=== PATIENT | female | born 1945 | race Caucasian/White ===

== ENCOUNTER → 2024-05-10 10:07 | Outpatient (REF) | payer MEDICARE, BC, SELFPAY | LOC: RAD 10:07 | PROVIDERS: ATTENDING PHYSICIAN Internal Medicine Endocrinology, Diabetes & Metabolism; FAMILY PHYSICIAN Student in an Organized Health Care Education/Training Program | DX: C73 Malignant neoplasm of thyroid gland (principal) | CPT/HCPCS: 76536 ==

== ENCOUNTER → 2024-06-10 08:57 | Outpatient (REF) | payer MEDICARE, BC, SELFPAY | LOC: RAD 08:57 | PROVIDERS: ATTENDING PHYSICIAN Student in an Organized Health Care Education/Training Program | DX: R14.0 Abdominal distension (gaseous) (principal) | CPT/HCPCS: 76830; 76856 ==

== ENCOUNTER → 2024-06-22 13:47 | Outpatient (REF) | payer MEDICARE, BC, SELFPAY | LOC: RAD 13:47 | PROVIDERS: ATTENDING PHYSICIAN Student in an Organized Health Care Education/Training Program | DX: N95.1 Menopausal and female climacteric states (principal); Z12.31 Encounter for screening mammogram for malignant neoplasm of breast; R09.89 Other specified symptoms and signs involving the circulatory and respiratory systems; Z78.0 Asymptomatic menopausal state | CPT/HCPCS: 77063; 77067; 77080 ==

== ENCOUNTER → 2025-07-04 09:28 | Outpatient (REF) | payer MEDICARE, BC, SELFPAY | LOC: RAD 09:28 | PROVIDERS: ATTENDING PHYSICIAN Internal Medicine Endocrinology, Diabetes & Metabolism; FAMILY PHYSICIAN Student in an Organized Health Care Education/Training Program | DX: E03.2 Hypothyroidism due to medicaments and other exogenous substances (principal); C73 Malignant neoplasm of thyroid gland | CPT/HCPCS: 76536 ==

== ENCOUNTER 2025-07-26 18:25 | Inpatient (IN) | payer MEDICARE, BC, SELFPAY ==
[2025-07-26] VITALS (8 sets, daily range): BP systolic 96–158; BP diastolic 48–67; PULSE 47–53; BMI 29.7
[2025-07-26 12:03] LABS: Hematocrit 44.9 % (37.0-47.0); Hemoglobin 15.0 g/dL (12.0-16.0); Mean Corp Hgb Conc. 33.4 g/dL (33.0-37.0); Mean Corpuscular Volume 90.5 fL (81.0-99.0); Nucleated Red Blood Cells % 0 %; Platelet Count 240 10^3/uL (130-400); Red Cell Dist. Width 12.8 % (11.5-14.5)
[2025-07-26 12:13] LABS: INR 1.32; PT 16.7 Sec (11.4-14.6)
[2025-07-26 12:26] LABS: ALT (SGPT) 18 U/L (0-35); AST (SGOT) 20 U/L (14-36); Albumin 4.7 g/dl (3.5-5.0); Alkaline Phosphatase 96 U/L (38-126); Blood Urea Nitrogen 17 mg/dl (7-17); Calcium 10.0 mg/dl (8.4-10.2); Carbon Dioxide 28 mmol/L (22-30); Chloride 104 mmol/L (98-107); Estimated Creatinine Clearance 73 ml/min; Glucose 109 mg/dl (70-99); Potassium 3.1 mmol/L (3.5-5.1); Sodium 142 mmol/L (135-145); Total Protein 8.2 g/dl (6.3-8.2); eGFR > 60.00
--- NOTE | 2025-07-26 12:47 | ED.GENMED ---
History of Present Illness
General
Chief Complaint: Rectal Bleeding
Source: patient
Exam Limitations: none
Time Seen by Provider: 07/26/25 12:36
History of Present Illness
History of Present Illness:
Patient here primarily complaining of rectal bleeding. She states she has been constipated for a while. She is on Wegovy. She has been taking MiraLAX. Yesterday had a large bowel movement. This was followed by some episodes of bright red blood
with that diarrhea. Some vague lower abdominal cramping and pain. No fever or chills. Patient is on Eliquis for atrial fibrillation. No other specific complaints
Past History
Past History
ED Past Medical History: Arrthythmia, GERD, HTN and Hypercholesterolemia
ED Past Surgical History: Cholecystectomy and Other (Thyroidectomy)
Review of Systems
Review of Systems
All Other Systems: Not applicable
Constitutional: Denies fever
Respiratory: Reports no symptoms
Cardiac: Reports no symptoms
Phy Exam
Physical Exam
Physical Exam:
GENERAL: Alert and oriented in no apparent distress. On her phone on arrival to the ER
EYE: Orbits normal.
NECK: Supple
CARDIAC: Regular rate and rhythm without any obvious murmurs.
LUNGS: Clear breath sounds,normal
ABDOMEN: Soft, minimal nonlocalizing diffuse lower abdominal tenderness. No rebound or guarding no mass or hernia. Rectal exam with moderate noninflamed external hemorrhoids. No external blood. On rectal digital exam there is no stool or fluid
or blood in the rectal vault. Essentially test negative. However very minimal fluid to test
NEUROLOGICAL: Alert and oriented , grossly non-focal
SKIN: Warm and dry, no rash or lesion, no discoloration, skin intact.
MUSCULOSKELETAL: No edema,no deformity.Good color
PSYCH: Normal and appropriate interaction.
Course
Orders/Labs/Results
Orders:
Orders
07/26/25 11:57
Type+Screen Urgent
Complete Blood Count/With Diff Urgent
Comprehensive Metabolic Panel Urgent
Prothrombin Time Urgent
07/26/25 12:45
CT Abd/Pel (IV only)-DH only Urgent
Comment:
Reason For Exam: Lower abdominal pain/rectal bleeding
IV Insert/Care/Rem.- Treatment PRN
0.9% Sodium Chloride 500 ml [Nss] 500 ml IV BOLUS
07/26/25 15:45
Potassium Chloride 10% Elixir [KCl Elixir] 40 meq PO NOW STA
07/26/25 16:35
Lactic Acid Urgent
Piperacillin/Tazo 3.375 Gram [Zosyn] 3.375 gram in 50 ml IV NOW
Abnormal Lab Results
07/26/25
11:57
MPV 10.9 H fL
(7.4-10.4)
Absolute Neuts (auto) 7.8 H 10^3/uL
(1.4-6.5)
Absolute Monos (auto) 0.8 H 10^3/uL
(0.1-0.6)
PT 16.7 H Sec
(11.4-14.6)
Potassium 3.1 L mmol/L
(3.5-5.1)
Glucose 109 H mg/dl
(70-99)
07/26/25 11:57
07/26/25 11:57
Vital Signs
Initial and Last Documented VS:
Initial Vital Signs
Temp Pulse Resp BP Pulse Ox
98.8 F 51 18 158/67 99
07/26/25 11:48 07/26/25 11:48 07/26/25 11:48 07/26/25 11:48 07/26/25 11:48
Last Documented Vital Signs
Temp Pulse Resp BP Pulse Ox
98.8 F 61 16 136/62 95
07/26/25 11:48 07/26/25 14:18 07/26/25 14:18 07/26/25 14:00 07/26/25 14:00
MDM/Problems Addressed
Differential Diagnosis Includes:
Patient describing episodes of bright red rectal bleeding. Clinically stable. Large differential including bleeding hemorrhoid fissure internal hemorrhoid polyp diverticulitis. Doubt significant bleeding at this time given her stability stable
hemoglobin and no stool that test positive currently. Will check CT for diverticulitis.
*Pulse Oximetry
SaO2: 99
Oxygen Mode of Delivery: Room air
Patient hypoxic: no
*Critical Care Note
Total Time (30-74mins, 75-104mins- exclusive of procedures): Not Applicable
ED Attending Note
-
Portions of this chart may have been created with voice recognition software.� Occasional wrong word or��sound alike� substitutions may have occurred due to the inherent limitations of voice recognition software.
Discharge Plan
Departure
Patient Disposition: Admit
Date of Disposition: 07/26/25
Time of Disposition: 16:36
Presentation/result/management discussed w/ accepting MD/DO: Hospitalist
Discharge Problem:
Colitis/rectal bleeding
Prescriptions:
No Action
atorvastatin 20 mg Tablet
20 mg PO QPM
spironolacton-hydrochlorothiaz 25-25 mg Tablet
1 tab PO SUTUTHSA@1700
amlodipine 2.5 mg Tablet
2.5 mg PO QPM
omeprazole 20 mg Capsule,Delayed Release(Dr/Ec)
20 mg PO QPM
cholecalciferol (vitamin D3) [Vitamin D3] 125 mcg (5,000 unit) Tablet
125 mcg PO QPM
Eliquis 5 mg Tablet
5 mg PO BID
biotin 10,000 mcg Tablet,Disintegrating
10,000 mcg PO DAILY
enalapril maleate 2.5 mg Tablet
2.5 mg PO QPM
cyclosporine 0.05 % Drops
1 drp BOTH EYES Q12H
levothyroxine [Synthroid] 137 mcg Tablet
137 mcg PO MOTUWETHFRSA
ibuprofen [Advil] 200 mg Tablet
400 mg PO TIDPRN PRN (Reason: mild pain)
Align (B.longum) 10 million cell Capsule
1 cell PO DAILY
Referrals:
Ivett Lua MD [Family Provider, Internal Medicine]
Interventions
Interventions:
*Risk Screen - Suicide Last Done: 07/26/25 11:50
*General Assessment Last Done: 07/26/25 11:50
*Neglect/Abuse Screening Last Done: 07/26/25 11:50
*ED- Fall Risk Assessment Last Done: 07/26/25 12:19
*ED COVID-19 Vaccine History Last Done: 07/26/25 11:50
*ED Influenza Vaccine History Last Done: 07/26/25 11:50
QB-Jjlodg-Ogwggqjbea Assessment Last Done: 07/26/25 12:19
ED- Cardiac Assessment Last Done: 07/26/25 12:19
ED- Pulmonary Assessment Last Done: 07/26/25 12:19
Discharge Date and Time
Print Language: LAO
[2025-07-26] MEDS: NSS 500 IV (12:57)
[2025-07-26] MEDS: ZOSYN 50 IV (16:45)
[2025-07-26] MEDS: KCL ELIXIR 40 MEQ PO (16:45)
--- NOTE | 2025-07-26 17:18 | HPS.HSE ---
Family Physician
-
Family Physician: Ivett Lua MD
Chief Complaint
-
rectal bleed
History of Present Illness
79F on Eliquis, Prx AF, HTN , DLP, Hypothyroid see at ER
- rectal bleeding
- she has been constipated for a while
- on Wegovy.
- has been taking MiraLAX.
- Yesterday had a large bowel movement. This was followed by some episodes of bright red blood with that diarrhea.
- Some vague lower abdominal cramping and pain.
No fever or chills.
Medical History
Past Medical History
Past Medical History: Reports Arrhythmia (Prx AF o Eliquis ), GERD, HTN and Hypercholesterolemia
Past Surgical History: Reports Cholecystectomy and Other (Thyroidectomy))
Social History
Tobacco: Non-smoker
Alcohol: None
Family History
Family History: Not pertinent
Allergies / Home Medications
Allergies reflects when Allergies were last updated in [facility].
Home Medications with original date entered in [facility]
Allergy/Medication List:
Allergies
Allergy/AdvReac Type Severity Reaction Status Date / Time
No Known Drug Allergies Allergy NA Verified 07/26/25 11:48
pollen extracts Allergy itchy eyes Verified 07/26/25 11:48
& nose
Home Medications
amlodipine 2.5 mg tablet 2.5 mg PO QPM 04/02/23
apixaban 5 mg tablet (Eliquis) 5 mg PO BID 04/02/23
atorvastatin 20 mg tablet 20 mg PO QPM 04/02/23
biotin 10,000 mcg disintegrating tablet 10,000 mcg PO DAILY 04/02/23
cholecalciferol (vitamin D3) 125 mcg (5,000 unit) tablet (Vitamin D3) 125 mcg PO QPM 04/02/23
enalapril maleate 2.5 mg tablet 2.5 mg PO QPM 04/02/23
omeprazole 20 mg capsule,delayed release 20 mg PO QPM 04/02/23
spironolactone 25 mg-hydrochlorothiazide 25 mg tablet 1 tab PO SUTUTHSA@1700 04/02/23
cyclosporine 0.05 % eye drops 1 drp BOTH EYES Q12H 04/08/23
Bifidobacterium longum 10 million cell capsule (Align (B.longum)) 1 cell PO DAILY 07/26/25
ibuprofen 200 mg tablet (Advil) 400 mg PO TIDPRN PRN mild pain 07/26/25
levothyroxine 137 mcg tablet (Synthroid) 137 mcg PO MOTUWETHFRSA 07/26/25
Review of Systems
-
Constitutional: Reports No Symptoms
EENT: Reports No Symptoms
Respiratory: Reports No Symptoms
Cardiac: Reports No Symptoms
Abdomen/GI: Reports See HPI and Other (rectal bleed )
: Reports No Symptoms
Musculoskeletal: Reports No Symptoms
Skin: Reports No Symptoms
Neurological: Reports No Symptoms
Endocrine: Reports No Symptoms
Hematologic/Lymphatic: Reports No Symptoms
Psych: Reports No Symptoms
Physical Exam
Vital Signs
Vital Signs
Temp Pulse Resp BP Pulse Ox
98.8 F 61 16 136/62 95
07/26/25 11:48 07/26/25 14:18 07/26/25 14:18 07/26/25 14:00 07/26/25 14:00
Physical Exam
General: Well Developed, Well Nourished and No Apparent Distress
HEENT: NormoCephalic, Moist mucous membranes and Atraumatic
Respiratory: Clear
Cardiac: S1/S2 and Regular Rhythm; No Murmur or Rub
GI: Soft, Non Tender, Non Distended and Normal Bowel Sounds; No Organomegaly
Rectal: Red and Deferred by Provider
Musculoskeletal: No Clubbing, No Cyanosis and No Edema
Skin: No Rash
Neuro: Nonfocal/grossly intact
Laboratory Results
-
07/26/25 11:57
07/26/25 11:57
Laboratory Results
PT 16.7 Sec (11.4-14.6) H 07/26/25 11:57
INR 1.32 07/26/25 11:57
Total Bilirubin 0.9 mg/dl (0.2-1.3) 07/26/25 11:57
AST 20 U/L (14-36) 07/26/25 11:57
ALT 18 U/L (0-35) 07/26/25 11:57
Alkaline Phosphatase 96 U/L (38-126) 07/26/25 11:57
Impression/Plan
-
Temp Pulse Resp BP Pulse Ox
98.8 F 61 16 136/62 95
07/26/25 11:48 07/26/25 14:18 07/26/25 14:18 07/26/25 14:00 07/26/25 14:00
03/31/23 07/26/25
10:07 11:57
WBC 4.5 L 10.8
Hgb 14.7 15.0
Plt Count 189 240
INR 1.32
CT Abd/Pel (IV only)-DH only
1. MODERATE ACUTE COLITIS in the descending colon, sigmoid colon, and rectum. Diagnostic possibilities are (1) acute infectious colitis, (2) acute inflammatory bowel disease (ulcerative colitis), or (3) acute ischemic colitis.
2. Mild biliary dilatation.
3. Previous cholecystectomy.
4. Moderate calcific atherosclerotic plaque in the abdominal aorta.
5. 2.5 cm submucosal leiomyoma in the uterine fundus.
6. Severe discogenic degenerative disease at L5/S1.
Last hospitalist admission: Nil
ASSESSMENT & PLAN
Acute rectal bleed - suspect LGB likely hemorrhoids
CT suggest colitis : acute infectious colitis, IBD, ischemic , stercoral colitis
Associated with constipation
- HD status stable
- Empiric IV Zosyn
- Hold Eliquis
- Hold BP Meds
- Clear diet and IVF
- Trend H & H
- T & S, Blood corseted and scanned
- GI consult
HX Prx AF
- Hold Eliquis
Chr condition:
Bn HTN: Hold Enlarpril , Spironolactone and Amlodipine
HLD : on Atorvastatin
Hypothyroid : on LT4
DVT Px: SCD
Ful code
IP TLM
--- NOTE | 2025-07-26 20:10 | PTCARENOTE ---
Patient arrived at 2N from ED. VSS. Telemetry applied. Patient oriented to unit.
[2025-07-26] MEDS: RESTASIS 0.05% OPHTHALMIC EMULSION 1 DROPS BOTH EYES (21:11)
[2025-07-26] MEDS: LIPITOR 20 MG PO (21:11)
[2025-07-26 22:38] LABS: Hematocrit 36.6 % (37.0-47.0); Hemoglobin 12.6 g/dL (12.0-16.0)
[2025-07-27] VITALS (9 sets, daily range): BP systolic 106–139; BP diastolic 43–66; PULSE 45–96
--- NOTE | 2025-07-27 04:23 | PTCARENOTE ---
Pt arrived to from ED via stretcher. Ambulated to bed. VSS. Telemetry applied-- afib. Full assessment and admission completed. Oriented to surroundings. Plan of care discussed. Call fields within reach.
[2025-07-27 04:26] LABS: Hematocrit 36.8 % (37.0-47.0); Hemoglobin 12.7 g/dL (12.0-16.0)
[2025-07-27] MEDS: SYNTHROID 137 MCG PO (05:05)
[2025-07-27] MEDS: RESTASIS 0.05% OPHTHALMIC EMULSION 1 DROPS BOTH EYES ×2 (08:21→21:06)
[2025-07-27] MEDS: PROTONIX IV 40 MG IV (08:21)
[2025-07-27] MEDS: NSS (PRESERVATIVE FREE) 10 ML IV (08:21)
--- NOTE | 2025-07-27 08:42 | W.PN.HOSP.TC ---
Today's Communication/Plan
-
see plan
Assessment / Plan
Assessment / Plan
Gen: NAD, AAOx3.
Eyes: EOMI, PERRLA, no scleral icterus.
Neck: supple.
CV: irreg/irreg, +S1/S2, no m/r/g.
Resp: CTAB, no rales, wheezes, or rhonchi.
Abd: +BS, soft, NT, ND
Skin: No rashes.
Neuro: CN 2-12 intact, non-focal.
Psych: Normal mood and affect.
CT A/P w/IV:
1. MODERATE ACUTE COLITIS in the descending colon, sigmoid colon, and rectum. Diagnostic possibilities are (1) acute infectious colitis, (2) acute inflammatory bowel disease (ulcerative colitis), or (3) acute ischemic colitis.
2. Mild biliary dilatation.
3. Previous cholecystectomy.
4. Moderate calcific atherosclerotic plaque in the abdominal aorta.
5. 2.5 cm submucosal leiomyoma in the uterine fundus.
6. Severe discogenic degenerative disease at L5/S1.
Acute rectal bleeding:
-exacerbated by Eliquis which is on hold
-Hb stable, trend
-CT A/P above
-c/s GI
-cont empiric Zosyn
-clears
-s/p IVFs
Other problems:
PAF: Eliquis on hold
Essential HTN: holding home antihypertensive medications
HLD: Cont statin
Hypothyroidism: cont Synthroid
Hypokalemia: s/p 40meq K, recheck K
FULL/SCDs
Anticipated Discharge: Within 24 hours
Subjective/Interval History
-
Date of Service: July 27, 2025
Still with BRBPR. Abd pain improving.
Objective Data
-
Labs:
Laboratory Results
07/26/25 07/27/25
22:28 04:08
Hgb 12.6 12.7
Hct 36.6 L 36.8 L
Vital Signs:
Vital Signs
Temp Pulse Resp BP Pulse Ox
98.1 F 96 14 128/60 96
07/27/25 03:12 07/27/25 03:12 07/27/25 03:12 07/27/25 03:12 07/27/25 03:12
I&O
07/26/25 07/27/25 07/28/25
06:59 06:59 06:59
Intake Total 360 / 360
Balance 360 / 360
[2025-07-27 09:33] LABS: Blood Urea Nitrogen 17 mg/dl (7-17); Calcium 9.1 mg/dl (8.4-10.2); Carbon Dioxide 29 mmol/L (22-30); Chloride 106 mmol/L (98-107); Estimated Creatinine Clearance 73 ml/min; Glucose 88 mg/dl (70-99); Potassium 3.3 mmol/L (3.5-5.1); Sodium 140 mmol/L (135-145); eGFR > 60.00
--- NOTE | 2025-07-27 12:51 | CM ---
CM following re: discharge planning.
reviewed pt's chart, met with pt.
pt is a 79 year old female, admitted with primary dx of Acute rectal bleeding.
Pt reports she lives with in a 2SH, 2 steps to enter, has 2 supportive children. 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 No DME, VN or SNF history. 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 Pt's
brother is staying with him today and son is coming fro [facility] to help. Pt expressed her desire to return back home at discharge and she stated she will drive home.
PCP: Ivett Thompson
[facility]armacy: [facility]
D/C plan: home with anticipated no needs. Will drive home.
CM will follow with discharge plan updates as needed.
[2025-07-27] MEDS: LIPITOR 20 MG PO (16:13)
[2025-07-27] MEDS: ZOSYN 50 IV ×2 (16:13→21:06)
[2025-07-28] MEDS: ZOSYN 50 IV ×2 (04:28→10:32)
[2025-07-28] MEDS: SYNTHROID 137 MCG PO (05:25)
[2025-07-28 06:53] LABS: Blood Urea Nitrogen 14 mg/dl (7-17); Calcium 9.0 mg/dl (8.4-10.2); Carbon Dioxide 32 mmol/L (22-30); Chloride 103 mmol/L (98-107); Estimated Creatinine Clearance 57 ml/min; Glucose 87 mg/dl (70-99); Potassium 3.3 mmol/L (3.5-5.1); Sodium 141 mmol/L (135-145); eGFR > 60.00
[2025-07-28 07:00] VITALS: BP 109/47
--- NOTE | 2025-07-28 07:52 | W.PN.HOSP.TC ---
Addendum entered and electronically signed by Jeffery Campos MD 07/28/25 15:59:
Pt seen by Dr. Trujillo, no abx needed, [facility] can restart tomorrow AM.
Addendum entered and electronically signed by Jeffery Campos MD 07/28/25 13:28:
Case discussed with GI and from their standpoint the patient is medically cleared for discharge. Their feeling was that we could go either way with antibiotics considering the patient has no leukocytosis or fever. Will discharge on 5 further days
of Augmentin.
Total time spent on d/c = 40 min. This included today's physical exam, progress note, review of laboratory and diagnostic data, preparation of discharge documents and prescriptions, and discussions about the pt's hospital course and discharge plan
with the patient and other durable medical equipment repairer involved in the patient's care.
Original Note:
Today's Communication/Plan
-
see plan
Assessment / Plan
Assessment / Plan
Gen: NAD, AAOx3.
Eyes: EOMI, PERRLA, no scleral icterus.
Neck: supple.
CV: irreg/irreg, +S1/S2, no m/r/g.
Resp: CTAB, no rales, wheezes, or rhonchi.
Abd: +BS, soft, NT, ND
Skin: No rashes.
Neuro: CN 2-12 intact, non-focal.
Psych: Normal mood and affect.
CT A/P w/IV:
1. MODERATE ACUTE COLITIS in the descending colon, sigmoid colon, and rectum. Diagnostic possibilities are (1) acute infectious colitis, (2) acute inflammatory bowel disease (ulcerative colitis), or (3) acute ischemic colitis.
2. Mild biliary dilatation.
3. Previous cholecystectomy.
4. Moderate calcific atherosclerotic plaque in the abdominal aorta.
5. 2.5 cm submucosal leiomyoma in the uterine fundus.
6. Severe discogenic degenerative disease at L5/S1.
Acute rectal bleeding:
-exacerbated by Eliquis which is on hold
-cont trend Hb (stable)
-CT A/P above
-c/s GI (no consult order placed by admitting physician)
-cont empiric Zosyn
-clears
-s/p IVFs
Other problems:
PAF: Eliquis on hold
Essential HTN: holding home antihypertensive medications
HLD: Cont statin
Hypothyroidism: cont Synthroid
Hypokalemia: 40meq K, Mg normal
FULL/SCDs
Anticipated Discharge: Within 24 hours
Subjective/Interval History
-
Date of Service: July 28, 2025
Rectal bleeding has stopped. Denies significant abd pain. Asking to go home.
Objective Data
-
Labs:
Laboratory Results
07/28/25
05:48
Sodium 141
Potassium 3.3 L
Chloride 103
Carbon Dioxide 32 H
BUN 14
Creatinine 0.9
Glucose 87
Calcium 9.0
Vital Signs:
Vital Signs
Temp Pulse Resp BP Pulse Ox
98.0 F 44 16 139/66 98
07/27/25 23:05 07/27/25 23:05 07/27/25 23:05 07/27/25 23:05 07/27/25 23:05
I&O
07/27/25 07/28/25 07/29/25
06:59 06:59 06:59
Intake Total 360 / 360 720 / 720
Balance 360 / 360 720 / 720
[2025-07-28 08:07] LABS: Hematocrit 38.1 % (37.0-47.0); Hemoglobin 13.1 g/dL (12.0-16.0); Mean Corp Hgb Conc. 34.4 g/dL (33.0-37.0); Mean Corpuscular Volume 90.5 fL (81.0-99.0); Platelet Count 201 10^3/uL (130-400); Red Cell Dist. Width 12.5 % (11.5-14.5)
[2025-07-28 08:27] LABS: Magnesium 1.8 mg/dl (1.6-2.3)
--- NOTE | 2025-07-28 09:55 | CON.GI ---
Addendum entered and electronically signed by Daniella Trujillo MD 07/28/25 18:20:
I saw and examined the patient.
The PIPE SMOKING MACHINE OPERATOR or PA's note was reviewed and I agree with the note.
Comment: 79-year-old female with history of atrial fibrillation on Eliquis, history of constipation on Wegovy presenting with complaints of abdominal discomfort and diarrhea followed by bloody diarrhea that started last Friday. As per patient,
since she started Wegovy 5 months ago, she started getting constipated, she would have 1-2 bowel movements a week, she would take fiber pills, sometimes Colace and as needed MiraLAX but nothing on a consistent basis. Last week, she took MiraLAX 3
days and she was also taking NSAIDs for a fall, up to 6 pills a day and Friday she started with lower abdominal discomfort with large-volume nonbloody diarrhea followed by bloody diarrhea. No previous similar episodes. In the emergency room, CBC
and CMP were unremarkable. CT scan of the abdomen pelvis with IV contrast showing moderate acute colitis in the left colon, descending colon to the rectum. Colonoscopy [place] [address] Salcedo showing polyps, no previous endoscopies. Last bowel
movement was 07/26, small and gelatinous, nothing in the last 48 hours. Brother with history of colon cancer. 30 pound weight loss on Wegovy.
Stool studies not done as patient did not have bowel movements.
- Abdominal pain, bloody diarrhea and left-sided colitis on CT scan, rule out infectious versus ischemic colitis
No leukocytosis, fevers or drop in hemoglobin
Stool studies could not be obtained as diarrhea stopped
Abdominal discomfort is better and no further bleeding.
Okay to start low residue diet, hold off on NSAIDs. No need for antibiotics
Monitor bowel movements for any evidence of bleeding again.
Set up an appointment with me 08/26 at noon. She will need follow-up colonoscopy.
Original Note:
Consultation
-
Date/Time Consultation Requested: 07/28/25 0800
Date/Time Consultation Performed: 07/28/25 1000
Requesting Provider: Jeffery Campos MD
Performing Provider: NAIDA Clark, Daniella Trujillo MD
Reason for Consultation: colitis
Medical History
Chief Complaint / HPI
Chief Complaint: abdominal pain and rectal bleeding
History of Present Illness:
Pt is a 79yo with hx afib on Eliquis, SSS,GERD, HTN, colon polyps, sleep apnea, graves disease, prior thyroidectomy, murmur, prior ronaldo with onset of constipation with Wegovy use then began with large stool and bleeding. On admission noted with
moderate acute colitis in descending, sigmoid, and rectum. Also noted mild biliary dilation, prior ronaldo, calcific plaque, uterine leiomyoma, DDD.
In review with patient she admits to recent constipation. She was taking Miralax several doses per week but noted bloating. She denies recent travel, antibiotics or sick contacts. She began with lower abdominal pain with initial large volume of
stool then all red blood. Since admission she has had minimal stool and abdominal pain improving. Stool cultures pending to be sent. She admits to 30 lbs wt loss with Wegovy and chronic GERD. She did vomit clear bile prior to admission but no
blood. Pain was 10/10 and sharp at onset now improved. She otherwise denies odynophagia, dysphagia, GERD, or black stools. No prior EGD and hx colon 2021 with polyps (was due 2023 follow up but pt did not recall needed to be done). Brother with
colon CA. Pt also admits to NSAID use with recent fall last week.
Past Medical History
Past Medical History: Arrhythmias (bradicardia- sick sinus syndrome, afib on Eliquis), GERD, HTN and Other (colon polyps, sleep apnea, graves disease, murmur)
Past Surgical History: Cholecystectomy and Other (thyroidectomy)
Social History
Tobacco: Non-Smoker
Alcohol: Occasional
Drug: None
Personal:
Living: With Family
Employment: Retired
Family History
Family History: Other (brother with colon CA)
Allergies / Home Medications
Allergy/AdvReac Type Severity Reaction Status Date / Time
pollen extracts Allergy itchy eyes Verified 07/26/25 11:48
& nose
�Medication �Instructions �Recorded
amlodipine 2.5 mg tablet 2.5 mg PO QPM Blood Pressure 04/02/23
apixaban 5 mg tablet (Eliquis) 5 mg PO BID Blood Clot 04/02/23
Prevention/Tx
atorvastatin 20 mg tablet 20 mg PO QPM High Cholesterol 04/02/23
biotin 10,000 mcg disintegrating 10,000 mcg PO DAILY Supplement 04/02/23
tablet
cholecalciferol (vitamin D3) 125 125 mcg PO QPM Supplement 04/02/23
mcg (5,000 unit) tablet (Vitamin
D3)
enalapril maleate 2.5 mg tablet 2.5 mg PO QPM Blood Pressure 04/02/23
omeprazole 20 mg capsule,delayed 20 mg PO QPM Gastrointestinal Issue 04/02/23
release
spironolactone 25 1 tab PO SUTUTHSA@1700 Blood 04/02/23
mg-hydrochlorothiazide 25 mg tablet Pressure
cyclosporine 0.05 % eye drops 1 drp BOTH EYES Q12H Eye Condition 04/08/23
Bifidobacterium longum 10 million 1 cell PO DAILY Supplement 07/26/25
cell capsule (Align (B.longum))
ibuprofen 200 mg tablet (Advil) 400 mg PO TIDPRN PRN mild pain 07/26/25
levothyroxine 137 mcg tablet 137 mcg PO MOTUWETHFRSA Thyroid 07/26/25
(Synthroid)
Review of Systems
-
History Source: Patient
Constitutional: Reports Weight Loss
EENT: Reports No Symptoms
Respiratory: Reports No Symptoms
Cardiac: Reports No Symptoms
Abdomen/GI: Reports Abdominal Pain, Nausea, Vomiting, Diarrhea, Constipated and Bloody Stools
: Reports No Symptoms
Musculoskeletal: Reports Other (recent pain with fall and NSAID use )
Skin: Reports No Symptoms
Neurological: Reports Weakness
Endocrine: Reports No Symptoms
Hematologic/Lymphatic: Reports Bleeding
Vital Signs
Temp Pulse Resp BP Pulse Ox
98.3 F 45 16 109/47 97
07/28/25 07:00 07/28/25 07:00 07/28/25 07:00 07/28/25 07:00 07/28/25 07:00
Physical Exam
Exam
General: Well Developed, Well Nourished and No Apparent Distress
HEENT: Normocephalic and Anicteric
Respiratory: Clear
Cardiac: Other (bradicardia)
GI: Soft, Non Distended and Tender (very minimal lower tenderness )
Musculoskeletal: No Clubbing and No Cyanosis
Skin: Warm and Dry
Neuro: Awake, Alert and AO x 3
Psych: Calm
Results
WBC 7.5 10^3/uL (4.8-10.8) 07/28/25 05:48
Hgb 13.1 g/dL (12.0-16.0) 07/28/25 05:48
Hct 38.1 % (37.0-47.0) 07/28/25 05:48
MCV 90.5 fL (81.0-99.0) 07/28/25 05:48
Plt Count 201 10^3/uL (130-400) 07/28/25 05:48
Absolute Neuts (auto) 7.8 10^3/uL (1.4-6.5) H 07/26/25 11:57
PT 16.7 Sec (11.4-14.6) H 07/26/25 11:57
INR 1.32 07/26/25 11:57
Sodium 141 mmol/L (135-145) 07/28/25 05:48
Potassium 3.3 mmol/L (3.5-5.1) L 07/28/25 05:48
Chloride 103 mmol/L (98-107) 07/28/25 05:48
Carbon Dioxide 32 mmol/L (22-30) H 07/28/25 05:48
BUN 14 mg/dl (7-17) 07/28/25 05:48
Creatinine 0.9 mg/dL (0.6-1.0) 07/28/25 05:48
Calcium 9.0 mg/dl (8.4-10.2) 07/28/25 05:48
Total Bilirubin 0.9 mg/dl (0.2-1.3) 07/26/25 11:57
AST 20 U/L (14-36) 07/26/25 11:57
ALT 18 U/L (0-35) 07/26/25 11:57
Alkaline Phosphatase 96 U/L (38-126) 07/26/25 11:57
Diagnostic Image Results:
07/26/25 CT Abd/Pel (IV only)-DH only
1. MODERATE ACUTE COLITIS in the descending colon, sigmoid colon, and rectum. Diagnostic possibilities are (1) acute infectious colitis, (2) acute inflammatory bowel disease (ulcerative colitis), or (3) acute ischemic colitis.
2. Mild biliary dilatation.
3. Previous cholecystectomy.
4. Moderate calcific atherosclerotic plaque in the abdominal aorta.
5. 2.5 cm submucosal leiomyoma in the uterine fundus.
6. Severe discogenic degenerative disease at L5/S1.
Prior GI Procedures:
EGD: none
Colonoscopy: 2021 [facility]- polyps
Assessment / Plan
-
Pt is a 79yo with hx afib on Eliquis, SSS,GERD, HTN, colon polyps, sleep apnea, graves disease, prior thyroidectomy, murmur, prior ronaldo with onset of constipation with Wegovy use then began with large stool and bleeding. On admission noted with
moderate acute colitis in descending, sigmoid, and rectum. Also noted mild biliary dilation, prior ronaldo, calcific plaque, uterine leiomyoma, DDD. In review with patient she admits to recent constipation. She was taking Miralax several doses per
week but noted bloating. She denies recent travel, antibiotics or sick contacts. She began with lower abdominal pain with initial large volume of stool then all red blood. Since admission she has had minimal stool and abdominal pain improving.
Stool cultures pending to be sent. She admits to 30 lbs wt loss with Wegovy and chronic GERD. She did vomit clear bile prior to admission but no blood. Pain was 10/10 and sharp at onset now improved. . No prior EGD and hx colon 2021 with polyps
(was due 2023 follow up but pt did not recall needed to be done). Brother with colon CA. Pt also admits to NSAID use with recent fall last week.
-onset of lower abdominal pain and rectal bleeding
-CT with left sided colitis
-hx constipation with wegovy use
-recent wt loss
-recent fall and NSAID use
-hx colon polyps due follow up colonoscopy
other med problems:
hx afib on Eliquis
- SSS with bradycardia on admission
-GERD
- HTN
- sleep apnea
-graves disease, prior thyroidectomy
- murmur
-prior ronaldo
PLAN:
etiology of colitis related to infectious vs ischemic process less likely IBD with prior stable colonoscopy and sudden onset
WBC and hbg stable
pt feeling improved minimal pain on exam
will increased to low residue diet
stool studies if able to obtain prior to discharge
pt asking for discharge to assist with spouse at home
if tolerating diet ok for discharge from GI standpoint-- I stressed to patient if any recurrent symptoms to return
message sent to GI office to arrange OP follow up then will need colonoscopy in in 8 weeks
discussed starting Miralax 1-2 times per day then add Sennokot at HS 2 tabs in able 2 weeks when improved
reviewed with Dr. Campos and Cassandra Schmitt via tiger text
-
-
Thank you for consultation and allowing me to participate in the patient's care. Please call the surgery consultant GI physician during the after hours with any questions or concerns.
[2025-07-28] MEDS: PROTONIX IV 40 MG IV (10:33)
[2025-07-28] MEDS: NSS (PRESERVATIVE FREE) 10 ML IV (10:33)
[2025-07-28] MEDS: RESTASIS 0.05% OPHTHALMIC EMULSION 1 DROPS BOTH EYES (10:33)
[2025-07-28] MEDS: KCL 40 MEQ PO (10:37)
--- NOTE | 2025-07-28 13:34 | W.DCSUMMARY ---
Discharge Summary
Discharge Data
Date of Admission: 07/26/25
Date of Discharge: 07/28/25
-
Pending Results: No
Hospital Course
Primary diagnoses:
Acute rectal bleeding
Acute colitis
Secondary diagnoses:
Paroxysmal atrial fibrillation
Essential hypertension
Hyperlipidemia
Hypothyroidism
Hypokalemia
Consultants:
Gastroenterology
Imaging:
CT A/P w/IV:
1. MODERATE ACUTE COLITIS in the descending colon, sigmoid colon, and rectum. Diagnostic possibilities are (1) acute infectious colitis, (2) acute inflammatory bowel disease (ulcerative colitis), or (3) acute ischemic colitis.
2. Mild biliary dilatation.
3. Previous cholecystectomy.
4. Moderate calcific atherosclerotic plaque in the abdominal aorta.
5. 2.5 cm submucosal leiomyoma in the uterine fundus.
6. Severe discogenic degenerative disease at L5/S1.
79-year-old female presented with a chief complaint of rectal bleeding as outlined in the H&P done on admission. Hospital course by problem list:
Acute rectal bleeding: This was exacerbated by Eliquis which was held while the patient was hospitalized. The patient's hemoglobin was stable hospitalized. Imaging above. Patient's rectal bleeding resolved. She was seen in consultation by GI.
She was on empiric Zosyn for colitis but due to the patient being afebrile without leukocytosis Dr. Trujillo did not feel that the patient required antibiotic therapy on discharge. It was also recommended that the patient's Eliquis be resumed the
day after discharge. Patient was supported with IV fluids. She was initially NPO. Diet was slowly and progressively advanced while hospitalized. She was discharged in medically stable condition.
Discharge Plan
-
Patient Disposition: Home (Routine Discharge)
Discharge Diagnosis/Procedures: Rectal bleeding, acute colitis
Condition: Good
Diet: Low Cholesterol and 2 Gram Sodium
Activity: No restrictions
Driving Restrictions: As prior to admission
Blood Work: BMP and CBC in 4 days, script from PCP
Activity Restrictions/Additional Instructions:
Should you develop any concerning symptoms including, but not limited to, abdominal pain, recurrent rectal bleeding, lightheadedness, please return to the ER immediately.
Your Eliquis was held with rectal bleeding. You can restart your Eliquis M.
Referrals:
Ivett Lua MD [Family Provider, Internal Medicine] - in three to four days
Daniella Trujillo MD [Active, Gastroenterology]
Referral Note: call to arrange 4-6 week follow up with [facility] or [facility] where colon was completed in past. If stool studies obtained prior to discharge call for results
Prescriptions:
New
Eliquis 5 mg tablet
5 mg PO BID Qty: 1 0RF
Rx Instructions:
start
Continued
atorvastatin 20 mg Tablet
20 mg PO QPM
omeprazole 20 mg Capsule,Delayed Release(Dr/Ec)
20 mg PO QPM
cholecalciferol (vitamin D3) [Vitamin D3] 125 mcg (5,000 unit) Tablet
125 mcg PO QPM
biotin 10,000 mcg Tablet,Disintegrating
10,000 mcg PO DAILY
cyclosporine 0.05 % Drops
1 drp BOTH EYES Q12H
levothyroxine [Synthroid] 137 mcg Tablet
137 mcg PO MOTUWETHFRSA
Align (B.longum) 10 million cell Capsule
1 cell PO DAILY
Discontinued
spironolacton-hydrochlorothiaz 25-25 mg Tablet
1 tab PO SUTUTHSA@1700
amlodipine 2.5 mg Tablet
2.5 mg PO QPM
Eliquis 5 mg Tablet
5 mg PO BID
enalapril maleate 2.5 mg Tablet
2.5 mg PO QPM
ibuprofen [Advil] 200 mg Tablet
400 mg PO TIDPRN PRN (Reason: mild pain)
Discharge Orders:
Discharge Patient (As Directed); Ordered 07/28/25
Ordered By: Jeffery Campos
Discharge Date and Time
Discharge Date/Time: 07/28/25 18:00
Print Language: PRYDEINIG
--- NOTE | 2025-07-28 13:43 | CM ---
CM following re: discharge planning.
Reviewed pt's chart, met with pt.
Discharge order noted. Pt is aware, expressed her agreement with discharge. IMM reviewed, placed on chart, pt has a copy.
No after care VN needs identified. Pt stated she will drive home.
D/C plan: home no needs.
[2025-07-28 15:06] VITALS: BP 127/58
== END 2025-07-28 18:00 | disposition home or self-care (01) | DRG 386 ==
LOC: 2 NORTH 18:25
PROVIDERS: Student in an Organized Health Care Education/Training Program; ADMITTING PHYSICIAN Internal Medicine; ATTENDING PHYSICIAN Internal Medicine; CONSULT PHYSICIAN Internal Medicine; EMERGENCY PHYSICIAN Emergency Medicine; FAMILY PHYSICIAN Student in an Organized Health Care Education/Training Program
DX: K51.511 Left sided colitis with rectal bleeding (principal); D68.32 Hemorrhagic disorder due to extrinsic circulating anticoagulants; K62.5 Hemorrhage of anus and rectum; I48.0 Paroxysmal atrial fibrillation; I10 Essential (primary) hypertension; E03.9 Hypothyroidism, unspecified; D25.0 Submucous leiomyoma of uterus; E78.00 Pure hypercholesterolemia, unspecified; G47.30 Sleep apnea, unspecified; K21.9 Gastro-esophageal reflux disease without esophagitis; I49.5 Sick sinus syndrome; K59.00 Constipation, unspecified; E05.00 Thyrotoxicosis with diffuse goiter without thyrotoxic crisis or storm; E87.6 Hypokalemia; Z79.01 Long term (current) use of anticoagulants; Z79.899 Other long term (current) drug therapy; Z80.0 Family history of malignant neoplasm of digestive organs
CPT/HCPCS: 74177; 80048; 80053; 83605; 83735; 85014; 85018; 85025; 85027; 85610; 86850; 86900; 86901; 96361; 96365; 99284; Q9967

== ENCOUNTER → 2025-08-25 12:24 | Outpatient (REF) | payer MEDICARE, BC, SELFPAY | LOC: HWWDC 12:24 | PROVIDERS: ATTENDING PHYSICIAN Student in an Organized Health Care Education/Training Program | DX: Z12.31 Encounter for screening mammogram for malignant neoplasm of breast (principal) | CPT/HCPCS: 77063; 77067 ==